=== PATIENT | female | born 1955 | race Caucasian/White ===

== ENCOUNTER 2018-02-03 20:44 | Emergency (ER) | payer OTHER ==
[~2018-02-03] VITALS: Ht 157.5 cm; Wt 63.5 kg
[~2018-02-03 20:44] MED LIST: NAPROSYN500 MG PO; NORCO 5-325 TA1 EACH PO; VALIUM5 MG PO
[2018-02-03] MEDS ORDERED: PRISTIQ100 MG (21:08)
[2018-02-03] MEDS ORDERED: HYDROCODONE-AP1 EAC6 PO (21:53)
[2018-02-03] MEDS ORDERED: FLEXERIL PO (21:53)
[2018-02-03 22:22] LABS: ABSOLUTE BASOPHILS 0.1 thou/uL (0.0-0.2); ABSOLUTE EOSINOPHILS 0.1 thou/uL (0.0-0.7); ABSOLUTE LYMPHOCYTES 1.7 thou/uL (0.8-5.3); ABSOLUTE MONOCYTES 0.2 thou/uL (0.0-1.2); ABSOLUTE NEUTROPHILS 2.4 thou/uL (1.6-8.1); BASOPHILS 1.2 %; EOSINOPHILS 2.9 %; HEMATOCRIT 32.1 % (37.0-47.0); HEMOGLOBIN 11.1 gm/dL (12.0-15.0); MCH 33.3 pg (26.0-34.0); MCHC 34.7 g/dL (28.0-37.0); MONOCYTES 3.7 %; NUCLEATED RBCS 0 /100WBC; PLATELET COUNT* 249 thou/uL (150-400); POLYS 54.2 %; RBC 3.35 mil/uL (4.20-5.00); WBC 4.5 thou/uL (4.0-11.0)
[2018-02-03 22:27] LABS: CALCIUM 9.4 mg/dL (8.5-10.1); CREATININE 1.3 mg/dL (0.6-1.3); POTASSIUM 4.3 mmol/L (3.5-5.1)
[2018-02-03 22:32] LABS: TOTAL BILIRUBIN 0.2 mg/dL (<0.1-1.0); TOTAL PROTEIN 7.6 g/dL (6.4-8.2)
[2018-02-04 00:25] VITALS: BP 142/77
--- NOTE | 2018-02-04 15:24 | EKG ---
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
== END 2018-02-04 00:27 | disposition short-term general hospital (02) ==
LOC: M.ERS 20:44
PROVIDERS: Family Medicine
DX: M84.48XA Pathological fracture, other site, initial encounter for fracture (principal); M89.58 Osteolysis, other site; Z88.2 Allergy status to sulfonamides